=== PATIENT | female | born 1975 | race Caucasian/White ===

== ENCOUNTER 2017-10-21 08:10 | Emergency (ER) | payer BC ==
[~2017-10-21] VITALS: Ht 157.4 cm; Wt 81.6 kg
[2017-10-21] MEDS ORDERED: LEXAPRO20 MG PO (08:20)
== END 2017-10-21 09:32 | disposition home or self-care (01) ==
LOC: ED 08:10
DX: S93.692A Other sprain of left foot, initial encounter (principal); W10.9XXA Fall (on) (from) unspecified stairs and steps, initial encounter; Y93.89 Activity, other specified; Y92.89 Other specified places as the place of occurrence of the external cause; Y99.8 Other external cause status